=== PATIENT | female | born 1970 | race Caucasian/White ===

== ENCOUNTER → 2016-07-29 | Outpatient (CLI) | payer BC ==
[~2016-07-29] MED LIST: ALBU1AER9 INH; ALPR-411 PO; AMLO10TA2 PO; ASPI-232 PO; ATOR-24 PO; AZITTAB PO; COEN100C15 PO; DULO60CA44 PO; HYDROCOD PO; HYDROCODONE COUGH; PANT40TA PO; Probiotic PO; TIOT1AER INH; VALS320T2 PO
--- NOTE | 2016-07-29 16:05 | DIAGNOSTIC IMAGING REPORT ---
TWO VIEW CHEST CLINICAL HISTORY: Pulmonary nodules. FINDINGS: PA and lateral chest radiographs are compared to study dated 10/05/2014 and correlated with chest CT dated 02/18/2016. The examination is degraded by large body habitus and by patient rotation on the PA view. The cardiomediastinal silhouette is unremarkable. The lungs and pleural spaces are clear. There is no pneumothorax. The bony thorax appears intact. Degenerative change is noted throughout the thoracic spine. IMPRESSION: The lungs are clear. Any pulmonary nodules seen by CT were not apparent by chest x-ray. Electronically signed by: Mich Mcmahon M.D. 07/29/2016 4:03 PM Dictated Date/Time: 07/29/2016 4:02 PM
== END | disposition home or self-care (01) ==
LOC: C.RAD1850 15:53
PROVIDERS: ATTEND Internal Medicine Pulmonary Disease
DX: R91.8 Other nonspecific abnormal finding of lung field (principal)

== ENCOUNTER → 2016-08-04 | Outpatient (CLI) | payer BC ==
[~2016-08-04] MED LIST changes: +OPTIRAY 320 IV PRN
--- NOTE | 2016-08-04 13:50 | DIAGNOSTIC IMAGING REPORT ---
CHEST CT WITH CONTRAST CT DOSE: 617.53 mGycm HISTORY: ASTHMA TECHNIQUE: Multiaxial CT images of the chest were performed following the intravenous administration of contrast. COMPARISON: Chest CT outside hospital 02/18/2016. Chest CT 08/02/2013. FINDINGS: The central airways are patent. No pleural effusions. No pneumothorax. Stable 3 mm nodule in the right middle lobe on image 154. Stable 4 mm nodule within the right lower lobe on image 146. Stable 2 mm subpleural nodule within the right lung apex on image 75. No new or suspicious pulmonary nodules identified. Stable area of scarring/fibrosis within the right hepatic dome. The spleen is unremarkable. Stable adrenal gland thickening. The central pulmonary arteries are patent. Normal caliber thoracic aorta. No mediastinal or hilar lymphadenopathy. Mosaic attenuation to the lungs persist. IMPRESSION: 1. No change from the prior studies. Mosaic attenuation to the lungs persist. This favors air trapping in the setting of small airways disease. 2. Stable subcentimeter pulmonary nodules. Therefore, these are likely benign. Electronically signed by: Macros Cunningham M.D. 08/04/2016 1:48 PM Dictated Date/Time: 08/04/2016 1:36 PM
== END | disposition home or self-care (01) ==
LOC: C.CTS 13:12
PROVIDERS: ATTEND Internal Medicine Pulmonary Disease
DX: J45.909 Unspecified asthma, uncomplicated (principal); R91.1 Solitary pulmonary nodule

== ENCOUNTER → 2017-07-02 | Outpatient (CLI) | payer BC ==
--- NOTE | 2017-07-02 11:16 | DIAGNOSTIC IMAGING REPORT ---
CT OF THE CHEST WITH IV CONTRAST CLINICAL HISTORY: J44.9 Chronic obstructive pulmonary. Pulmonary nodules COMPARISON STUDY: 08/04/2016 TECHNIQUE: Following the IV administration of 93 mL of Optiray-320, CT of the thorax was performed from the thoracic inlet to the lung bases. Images are reviewed in the axial, sagittal, and coronal planes. IV contrast was administered without complication. A dose lowering technique was utilized adhering to the principles of ALARA. CT DOSE: 779.35 mGy.cm FINDINGS: Thyroid: There is a multinodular thyroid gland, similar to the preceding study. Thoracic aorta: The thoracic aorta is normal in course and caliber, noting standard 3-vessel arch anatomy. No aneurysm or dissection is seen. Pulmonary vasculature: The pulmonary trunk is normal in caliber. There are no central filling defects identified to suggest pulmonary embolus. Note that this examination was not protocoled for the evaluation of pulmonary emboli. HEART: There are minor coronary artery calcifications. Lungs and pleural spaces: No pleural effusions are visualized. There is no focal pulmonary consolidation. There is slight mosaic attenuation the lungs, likely secondary to air-trapping. Very low suspicion subcentimeter right lung pulmonary nodules remain stable. Mediastinum: There is no mediastinal lymphadenopathy. Flower: There is no nodes of pathologic hilar adenopathy Axilla: There is no evidence of pathologic axillary lymphadenopathy Upper abdomen: There is mild hepatic steatosis. There is stable adrenal gland thickening. There is a partially visualized 11 mm left renal angiomyolipoma Skeletal structures: There are no lytic or blastic osseous lesions. IMPRESSION: 1. No acute intrathoracic findings 2. Stable very low suspicion subcentimeter pulmonary nodules. No further follow-up is indicated 3. Partially visualized left millimeter left renal angiomyolipoma Electronically signed by: Addy Costello M.D. 07/02/2017 11:14 AM Dictated Date/Time: 07/02/2017 11:07 AM
--- NOTE | 2017-07-06 07:56 | PULMONARY FUNCTION TEST ---
This is based of ATS criteria. SPIROMETRY: Moderately severe obstructive ventilatory disease. BRONCHODILATOR RESPONSE: Significant response based off FEV1 values. LUNG VOLUMES: Signs of hyperinflation with an elevated residual volume. DIFFUSION CAPACITY: Mildly decreased but corrects off alveolar volume. INTERPRETATION: Consistent with emphysema and component of reversible airway disease.
== END | disposition home or self-care (01) ==
LOC: C.CTS 10:39
PROVIDERS: ATTEND Physician Assistant
DX: J44.9 Chronic obstructive pulmonary disease, unspecified (principal)